=== PATIENT | female | born 1940 | race Caucasian/White ===

== ENCOUNTER 2017-01-07 03:35 | Observation (INO) | payer MEDICARE ==
[~2017-01-07] VITALS: Ht 160 cm; Wt 87.5 kg
--- NOTE | 2017-01-07 03:36 | ED.REPORT ---
HPI-Chest Pain 40 and Over Date of Service Jan 07, 2017 ED Provider: Carlos Cordero MD Patient is a 76 year old female with a history of hypertension and coronary artery disease with prior NSTEMI and cardiac stenting who presents to the ED via EMS after she awoke from sleep with left-sided chest and back pain just prior to arrival. Her pain radiated up to her left shoulder. The patient states that her symptoms are similar to what she experienced during her prior heart attack. EMS EKG enroute showed a left bundle branch block, which she is not aware of having previously. Patient was given 3x nitro and 4x 81mg aspirin by EMS, with improvement of her pain on arrival. Patient reports having acid reflux and indigestion but denies nausea or vomiting. Patient admits to associated shortness of breath but denies increased swelling in her legs. The patient states that she has felt unwell for the past few days. She noticed that her blood pressure has been more elevated than usual, as high as the 190s systolic. The patient received her NSTEMI aftercare at this facility but her initial treatment was at facility in [place], [place]. Patient had a pharmacological stress test March 2016 which revealed a small fixed perfusion defect consistent with prior myocardial infarction (overall low risk study). Her echocardiogram in March 2016 did not show any wall motion abnormalities, with an EF of 60-65%. Nursing Notes Stated Complaint: BACK AND LEFT SHOULDER PAIN Nursing Notes Reviewed: Yes Allergies: Coded Allergies: Gfhwydg-Duj-Gsu Reductase Inhibitor (Verified Allergy, Unknown, 01/07/17) General Time Seen by MD: 03:36 Chief Complaint Back pain Hx Obtained From: Patient Arrived By: Ambulance Sudden in Onset?: No Onset Occurred: Just prior to arrival Symptom Duration: Since onset Location: : Chest left Quality: Painful Radiation: : Back: Shoulder left Severity: Current: No pain currently Severity: Maximum: Moderate Recent Healthcare: No recent doctor visit, No recent hospitalization Similar Sx Previous: No Past Medical History Past Medical History Notes: March 2016: Pharmacological stress test revealed a small fixed perfusion defect consistent with prior myocardial infarction (overall low risk study). Echocardiogram in March 2016 did not show any wall motion abnormalities, with an EF of 60-65%. Past Medical History NSTEMI Reports: Coronary artery disease, Hypertension Past Surgical History cardiac stents breast reduction Reports: Hysterectomy Smoking History Unknown if Ever Smoker Social History Other Social History: Good social support, , Local resident Ambulatory Status Independent Review of Systems Respiratory: Reports: Shortness of breath Cardiovascular: Denies: Edema GI: Reports: Abdominal pain (indigestion), Denies: Nausea, Vomiting Musculoskeletal: Reports: Back pain, Extremity pain, Denies: Extremity swelling Complete sys rev & neg: except as marked. Physical Exam Initial Vital Signs Vital Signs (First) Date Time Temp Pulse Resp B/P Pulse Ox O2 Delivery O2 Flow Rate FiO2 01/07/17 03:42 37.3 90 15 148/75 100 Room Air Initial VS: Reviewed Head / Eyes: Atraumatic, Normocephalic, PERRL ENT: Conjunctiva normal, No scleral icterus Neck: Supple, Full range of motion Skin: Warm, Dry, No cyanosis Neurologic: Alert, Oriented, Nonfocal Psychiatric: Mood/affect normal, Behavior normal, Normal thought content General/Constitutional: Awake, Alert, No acute distress Respiratory / Chest: Breath sounds NL, Breath sounds = bilat, No respiratory distress, No rales, No rhonchi, No wheezing Cardiovascular: Heart rate NL, Regular rhythm, Heart sounds NL, No gallop, No murmurs, No rubs Abdomen: Soft, Non-tender, No guarding, No rebound Lower Extremity / Pelvis / MS: No swelling, No edema Interpretation & Diagnostics Lab Results Interpretation Result Diagram: 01/07/17 0330 01/07/17 0330 Test 01/07/17 03:30 White Blood Count 7.8th/mm3 (3.8-10.1) Red Blood Count 4.50mil/mm3 (3.90-5.20) Hemoglobin 13.3g/dL (12.0-15.6) Hematocrit 38.6% (35.0-46.0) Mean Corpuscular Volume 85.8fL (81-100) Mean Corpuscular Hemoglobin 29.6pg (27.0-35.0) Mean Corpuscular Hemoglobin Concent 34.5% (32.0-37.0) Red Cell Distribution Width 13.4% (12.3-15.4) Platelet Count 321bil/L (150-400) Neutrophils (%) (Auto) 44.4% (40-74) Lymphocytes (%) (Auto) 37.6% (14-46) Monocytes (%) (Auto) 12.8% (4-12) Eosinophils (%) (Auto) 4.2% (0-5) Basophils (%) (Auto) 0.5% (0-3) Prothrombin Time 9.9sec (8.1-12.5) Prothromb Time International Ratio 0.93ratio Activated Partial Thromboplast Time 26.8sec (22.8-33.0) Sodium Level 139mEq/L (134-144) Potassium Level 3.6mEq/L (3.5-5.2) Chloride Level 99mEq/L (97-108) Carbon Dioxide Level 22mmol/L (18-29) Blood Urea Nitrogen 14mg/dL (8-27) Creatinine 0.70mg/dL (0.57-1.00) Estimat Glomerular Filtration Rate 117mL/min (>59) Glucose Level 161mg/dL (60-99) Calcium Level 9.9mg/dL (8.5-10.1) Magnesium Level 2.2mg/dL (1.6-2.6) Total Bilirubin 0.4mg/dL (0.0-1.2) Aspartate Amino Transf (AST/SGOT) 19U/L (0-50) Alanine Aminotransferase (ALT/SGPT) 20U/L (0-32) Alkaline Phosphatase 79U/L (25-165) Troponin T 0.010ug/L (0.0-0.011) Pro-B-Type Natriuretic Peptide 118.1pg/mL (0-738) Total Protein 7.1g/dL (6.4-8.4) Albumin 4.1g/dL (3.4-5.0) ECG Interpretation ECG Interpretation: Normal Sinus Rhythm, Rate 88 LBBB Time: 03:45 Interpreted by: ED physician X-Ray Chest Interpretation Chest Xray Interpretation: Impression: Right hilum is prominent, ?Mass. Normal heart size. No infiltrate. View: Portable Interpretation / Wet Read by: Wet read ED physician Re-Eval/Medical Decision Med Decision/Clinical Course 76-year-old female with atypical chest pain presents with an identical syndrome to what brought her to attention a year ago, with a non-STEMI documented. She is pain-free at this point, has an unreasonable cardiogram with a left bundle branch block, age uncertain. She is admitted now for completion of rule out protocol and consider mibi testing and an echo. Transported in stable condition. Source of Hx: Old records Time of Eval: 04:27 Patient Status: Condition improved Re-Evaluation/Progress Note: Rechecked the patient to inform her of the results of her EKG, chest x-ray, and labs. Due to her history she will be admitted to the hospital per rule out procedure. Patient understands and agrees with this plan. All questions were addressed. Consultation : Referral / Consult Name: Kacie Dejesus DO Consulted With: Hospitalist Call Returned at: 04:15 Dental Prosthetist: Will see patient, Agrees with eval, Agrees with plan, Accepts admit Note: Spoke with Dr. Dejesus, hospitalist, who agrees to accept admit. Counseled Regarding: Diagnosis, Lab results, Need for admission Discharge & Departure Primary Impression: Chest pain Chest pain type: unspecified Qualified Code: R07.9 - Chest pain, unspecified Additional Impression: Coronary artery disease Coronary Disease-Associated Artery/Lesion type: [place] artery [place] vs. transplanted heart: [place] heart Associated angina: with unstable angina Qualified Code: I25.110 - Atherosclerotic heart disease of [place] coronary artery with unstable angina pectoris Disposition: ADMITTED TO HOSPITAL Discharge Condition All VS Reviewed: Yes Condition: Stable Referrals: Kelvin Tavares DO (PCP) Scribe Attestation Portions of this note were transcribed by Joyce Valdez. I, Dr. Cordero personally performed the history, physical exam and medical decision-making; I reviewed and confirmed the accuracy of the information in the transcribed note. Signed by: Sherine Mcbride, 01/07/2017 0521 copies to: Kelvin Tavares Christopher W MD Jan 07, 2017 03:36 Joyce Valdez Jan 07, 2017 03:42
[2017-01-07 03:42] VITALS: BP 148/75; PULSE 90; RESP 15; O2SAT 100
[2017-01-07 03:46] LABS: BASOPHILS % (AUTO) 0.5 % (0-3); EOSINOPHILS % (AUTO) 4.2 % (0-5); MONOCYTES % (AUTO) 12.8 % (4-12); Mean Corpuscular Hemoglobin 29.6 pg (27.0-35.0); Mean Corpuscular Volume 85.8 fL (81-100); NEUTROPHILS % (AUTO) 44.4 % (40-74); Platelet Count 321 bil/L (150-400)
[2017-01-07 04:08] LABS: INR 0.93 ratio
[2017-01-07 04:10] LABS: TROPONIN T 0.01 ug/L (0.0-0.011)
[2017-01-07 04:21] LABS: Magnesium 2.2 mg/dL (1.6-2.6)
[2017-01-07] MEDS ORDERED: Pantoprazole 4 mg/mL 10 mL Inj IVPUSH ONE (04:30)
[2017-01-07] MEDS ORDERED: Polyethylene Glycol (PEG) 17 Gm Powder PO PRN (05:05)
[2017-01-07] MEDS ORDERED: Alum-Mag Hydrox-Simeth 30 mL Suspension PO PRN (05:05)
[2017-01-07] MEDS ORDERED: Ondansetron 2 mg/mL 2 mL Inj IVPUSH PRN (05:05)
[2017-01-07 05:30] VITALS: BP 117/72; PULSE 70; RESP 19; O2SAT 95
[2017-01-07 05:38] VITALS: PULSE 68
[2017-01-07 05:39] VITALS: BP 126/70; PULSE 68; RESP 16; O2SAT 96
--- NOTE | 2017-01-07 05:52 | PCM.HPMED ---
Subjective Date of Service Jan 07, 2017 Primary Provider: Admitting Physician: Kacie Dejesus DO Primary Care Physician: Shagufta Malagon Attending Physician: Kacie Dejesus DO Admit Status: From the Emergency Department Chief Complaint: Chest pain History of Present Illness: Patient is a 76 year old female with a history of CAD s/p FERCHO placement in October of 2015, prior NSTEMI, hypertension, uncontrolled hyperlipidemia due to statin intolerance, hypothyroidism, and hyperglycemia without prior diagnosis of diabetes mellitus who presented to the ED via EMS with the complaint of substernal chest pain with radiation to her left arm, shoulder and back. Onset of symptoms was around 9pm and the patient's states that she felt as though her blood pressure was high. Upon checking she notes a systolic BP >160. She states that she otherwise was feeling well and went to sleep. Then around 2am her chest pain woke her so she rechecked her blood pressure, which she was states was >190s systolic and she called EMS. In transport she was given three doses of nitroglycerin and four doses of 81mg aspirin by EMS, with near resolution of her symptoms. She states that her symptoms were similar to those she experienced last year during her prior NSTEMI. Associated symptoms include shortness of breath and fatigue. She denies diaphoresis, nausea, vomiting, vision changes, dizziness, palpitations. Of note, her stent was placed in [facility] when she was on her way back to [place] from [facility]. She has been seen locally by Dr. Larose and was last seen in April of 2016. Following the placement of the stent she was started on daily aspirin, prasurgrel as well as Zetia. A stress test with myocardial perfusion imaging in March of 2016 showed a mild fixed lateral perfusion defect and an echocardiogram showed an EF 60-65% with no focal wall motion abnormalities. In the ED she was afebrile with temp of 37.3, BP 148/75, HR 90, RR 15, SpO2 100 % on room air. Labs significant for troponin of 0.010, proBNP of 118.1 and hyperglycemia with a serum glucose of 161. ECG Interpretation: NSR with rate in the 80s, LBBB, no ST changes Chest xray demonstrating a prominent right hilum, otherwise no acute cardiopulmonary process. Review of Systems: A comprehensive review of systems was conducted with the patient and found to be negative except as above in the History of Present Illness. Allergies Coded Allergies: Cdjfaog-Swy-Pgd Reductase Inhibitor (Verified Allergy, Unknown, 01/07/17) Home Medications Medication reconciliation not available at time of admission. Day team to confirm and reconcile. PMH CAD s/p FERCHO placement in Oct 2015 NSTEMI Intolerance to statins Hypothyroidism Hypertension Hyperlipidemia Surgical History Cardiac stent Hysterectomy Breast reduction Orthopedic surgeries Family History Noncontributory Social History Hx Alcohol Use: No Hx Substance Use: No Hx Tobacco Use: No Smoking Status: Never Smoker Living Arrangement: with Family Additional Information Retired [employer], live with and cares for her with vascular dementia in [facility]. Exam Vital Signs Vital Sign - Last Date Time Temp Pulse Resp B/P Pulse Ox O2 Delivery O2 Flow Rate FiO2 01/07/17 05:39 36.4 68 16 126/70 96 Room Air Exam General: well developed, well nourished, female sitting up in bed, in no acute distress, appropriately interactive HEENT: Normocephalic, atraumatic. PERRLA, no scleral icterus. Oropharynx free of erythema and cobble stoning with moist mucosa. Neck: No jugular venous distension. No bruits. No lymphadenopathy or thyromegaly. Cardiovascular: Regular rate and rhythm with no murmurs, rubs, or gallops appreciated Pulmonary: Clear to auscultation bilaterally with no crackles, wheezes, or rhonchi. Normal respiratory effort with no use of accessory muscles. Abdomen: Bowel tones present. Soft, nontender, nondistended. No hepatosplenomegaly or masses appreciated. Extremities: No clubbing, cyanosis, or edema Skin: Normal temperature, turgor, and texture; no rash, ulcers, or subcutaneous nodules appreciated. Neurological: Cranial nerves grossly intact. Normal muscle strength, tone, and bulk. Psychiatric: Normal mood and affect. Alert and oriented to person, place, and time. Lab and Diagnostics Labs Laboratory Tests Test 01/07/17 03:30 White Blood Count 7.8th/mm3 (3.8-10.1) Red Blood Count 4.50mil/mm3 (3.90-5.20) Hemoglobin 13.3g/dL (12.0-15.6) Hematocrit 38.6% (35.0-46.0) Mean Corpuscular Volume 85.8fL (81-100) Mean Corpuscular Hemoglobin 29.6pg (27.0-35.0) Mean Corpuscular Hemoglobin Concent 34.5% (32.0-37.0) Red Cell Distribution Width 13.4% (12.3-15.4) Platelet Count 321bil/L (150-400) Neutrophils (%) (Auto) 44.4% (40-74) Lymphocytes (%) (Auto) 37.6% (14-46) Monocytes (%) (Auto) 12.8% (4-12) Eosinophils (%) (Auto) 4.2% (0-5) Basophils (%) (Auto) 0.5% (0-3) Prothrombin Time 9.9sec (8.1-12.5) Prothromb Time International Ratio 0.93ratio Activated Partial Thromboplast Time 26.8sec (22.8-33.0) Sodium Level 139mEq/L (134-144) Potassium Level 3.6mEq/L (3.5-5.2) Chloride Level 99mEq/L (97-108) Carbon Dioxide Level 22mmol/L (18-29) Blood Urea Nitrogen 14mg/dL (8-27) Creatinine 0.70mg/dL (0.57-1.00) Estimat Glomerular Filtration Rate 117mL/min (>59) Glucose Level 161mg/dL (60-99) Calcium Level 9.9mg/dL (8.5-10.1) Magnesium Level 2.2mg/dL (1.6-2.6) Total Bilirubin 0.4mg/dL (0.0-1.2) Aspartate Amino Transf (AST/SGOT) 19U/L (0-50) Alanine Aminotransferase (ALT/SGPT) 20U/L (0-32) Alkaline Phosphatase 79U/L (25-165) Troponin T 0.010ug/L (0.0-0.011) Pro-B-Type Natriuretic Peptide 118.1pg/mL (0-738) Total Protein 7.1g/dL (6.4-8.4) Albumin 4.1g/dL (3.4-5.0) Result Diagram: 01/07/17 03301/07/17 033 X-Rays, CTs and MRIs Official read pending at time of admission: Chest xray demonstrating a prominent right hilum, otherwise no acute cardiopulmonary process. 12-lead ECG ECG Interpretation: NSR with rate in the 80s, LBBB, no ST changes Assessment & Plan 76y/o female with a history of CAD s/p FERCHO placement in October of 2015, prior NSTEMI, hypertension, uncontrolled hyperlipidemia due to statin intolerance, hypothyroidism, and hyperglycemia without prior diagnosis of diabetes mellitus who presented to the ED via EMS with the complaint of acute onset of substernal chest pain with radiation to her left arm, shoulder and back. Admitted to rule out cardiac cause for chest pain. 1. Chest pain, acute, present on admission. Improved -Pt reported symptoms similar to prior NSTEMI. CP improved with SL nitro. -Initial troponin is negative, proBNP elevated at 118.1 -EKG with LBBB and no ST changes -CXR with prominent right hilum but otherwise unremarkable and official read pending. -Admitted to medical floor with telemetry -Cardiac stress test ordered, consider consult to cardiology -Pt intolerant to statins -Continue oral aspirin, hold beta robb for stress test -SL nitro prn and IV morphine prn as long as BP tolerates -Trend troponin, hgbA1c and lipid panel pending -NPO for possible procedures -Day team to reconcile medications 2. Hyperglycemia, present on admission. Active. -Pt denies prior diagnosis of diabetes, serum glucose on admission 180 -HbA1c 3. Hx of CAD with prior NSTEMI and FERCHO placement in Oct 2015 -Pt intolerant to statins -Continue daily aspirin, pt thinks she takes lisinopril. Med rec not available at time of admission. -Consider starting beta robb pending cardiac stress test 4. Chronic hypertension, present on admission. Active. -Continue home meds, pending med rec 5. Chronic hyperlipidemia, present on admission. Active. -Continue home meds, pending med rec, pt intolerant to statins 6. Chronic hypothyroidism, present on admission. Presumed stable. -Continue home meds, pending med rec PRN: Acetaminophen-fever/headache/mild/moderate pain Antiemetics, as needed Bowel regimen, as needed. Disposition: Patient admitted under observation status with expected length of stay < 2 midnights for severity of present symptoms, complexities of treatment plan and risk for adverse event. Pain Evaluation: Adequate Pain Control VTE Prophylaxis Indicated: Meets Criteria for Anticoag Therapy VTE Prophylaxis: Sub-Q Heparin (Unfractionated) VTE Mechanical Devices: Intermittant Pneumatic CD Resuscitation Status: CPR: Attempt Resuscitation Attending Statement The patient was seen and examined together with house staff on 01/07/2017 and I agree with the history, exam and plan as outlined in the note above. Citlalli Mckeon Jan 07, 2017 05:52 Kacie Dejesus Jan 07, 2017 06:50 Primary Impression: Chest pain Chest pain type: unspecified Qualified Code: R07.9 - Chest pain, unspecified Disposition: ADMITTED TO HOSPITAL Discharge Condition All VS Reviewed: Yes Condition: Stable Referrals: Kelvin Tavares DO (PCP) Scribe Attestation Portions of this note were transcribed by Joyce Valdez. I, Dr. Cordero personally performed the history, physical exam and medical decision-making; I reviewed and confirmed the accuracy of the information in the transcribed note. Signed by: Sherine Mcbride, 01/07/2017 0521 copies to: Kelvin Tavares Christopher W MD Jan 07, 2017 03:36 Joyce Valdez Jan 07, 2017 03:42 Report status: Draft Transcribed by: RENETTA 01/07/17 0336 REPORT#: [id number] Allergies Coded Allergies: Bbphfmx-Yaz-Nwf Reductase Inhibitor (Verified Allergy, Unknown, 01/07/17) PMH Social History Hx Alcohol Use: No Hx Substance Use: No Smoking Status: Unknown if Ever Smoker Exam Vital Signs Vital Sign - Last Date Time Temp Pulse Resp B/P Pulse Ox O2 Delivery O2 Flow Rate FiO2 01/07/17 05:39 36.4 68 16 126/70 96 Room Air Exam General: No acute distress, well-developed, well-nourished, appropriately interactive HEENT: Normocephalic, atraumatic. External ears without defect. Pupils equal, round, and reactive to light and accommodation. Anicteric sclerae, moist conjunctivae, and no lid lag. Oropharynx free of erythema and cobble stoning with moist mucosa. Neck: Supple with full range of motion. No jugular venous distension. No bruits. No lymphadenopathy or thyromegaly. Cardiovascular: Regular rate and rhythm with no murmurs, rubs, or gallops appreciated Pulmonary: Clear to auscultation bilaterally with no crackles, wheezes, or rhonchi. Normal respiratory effort with no use of accessory muscles. Abdomen: Bowel tones present. Soft, nontender, nondistended. No hepatosplenomegaly or masses appreciated. Extremities: No clubbing, cyanosis, edema, or lymphadenopathy appreciated. Skin: Normal temperature, turgor, and texture; no rash, ulcers, or subcutaneous nodules appreciated. Neurological: Cranial nerves grossly intact. Normal muscle strength, tone, and bulk. Reflexes, coordination, and sensory function within normal limits. No known gait impairment. Psychiatric: Normal mood and affect. Alert and oriented to person, place, and time. Lab and Diagnostics Labs Laboratory Tests Test 01/07/17 03:30 White Blood Count 7.8th/mm3 (3.8-10.1) Red Blood Count 4.50mil/mm3 (3.90-5.20) Hemoglobin 13.3g/dL (12.0-15.6) Hematocrit 38.6% (35.0-46.0) Mean Corpuscular Volume 85.8fL (81-100) Mean Corpuscular Hemoglobin 29.6pg (27.0-35.0) Mean Corpuscular Hemoglobin Concent 34.5% (32.0-37.0) Red Cell Distribution Width 13.4% (12.3-15.4) Platelet Count 321bil/L (150-400) Neutrophils (%) (Auto) 44.4% (40-74) Lymphocytes (%) (Auto) 37.6% (14-46) Monocytes (%) (Auto) 12.8% (4-12) Eosinophils (%) (Auto) 4.2% (0-5) Basophils (%) (Auto) 0.5% (0-3) Prothrombin Time 9.9sec (8.1-12.5) Prothromb Time International Ratio 0.93ratio Activated Partial Thromboplast Time 26.8sec (22.8-33.0) Sodium Level 139mEq/L (134-144) Potassium Level 3.6mEq/L (3.5-5.2) Chloride Level 99mEq/L (97-108) Carbon Dioxide Level 22mmol/L (18-29) Blood Urea Nitrogen 14mg/dL (8-27) Creatinine 0.70mg/dL (0.57-1.00) Estimat Glomerular Filtration Rate 117mL/min (>59) Glucose Level 161mg/dL (60-99) Calcium Level 9.9mg/dL (8.5-10.1) Magnesium Level 2.2mg/dL (1.6-2.6) Total Bilirubin 0.4mg/dL (0.0-1.2) Aspartate Amino Transf (AST/SGOT) 19U/L (0-50) Alanine Aminotransferase (ALT/SGPT) 20U/L (0-32) Alkaline Phosphatase 79U/L (25-165) Troponin T 0.010ug/L (0.0-0.011) Pro-B-Type Natriuretic Peptide 118.1pg/mL (0-738) Total Protein 7.1g/dL (6.4-8.4) Albumin 4.1g/dL (3.4-5.0) Result Diagram: 01/07/1732901/07/17329 Assessment & Plan PRN: Acetaminophen-fever/headache/mild/moderate pain Antiemetics, as needed Bowel regimen, as needed. : Polyethylene glycol, senokot, maalox (al hydroxide/mg hydroxide) Disposition: Patient admitted under inpatient status with expected length of stay > 2 midnights for severity of present symptoms, complexities of treatment plan and risk for adverse event. Citlalli Mckeon DO Jan 07, 2017 05:52 stay > 2 midnights for severity of present symptoms, complexities of treatment plan and risk for adverse event. Citlalli Mckeon DO Jan 07, 2017 05:52
[2017-01-07 08:07] LABS: APPEARANCE,URINE HAZY (CLEAR,HAZY); COLOR,URINE YELLOW (YELLOW); OCCULT BLOOD,URINE NEGATIVE (NEGATIVE); PH,URINE 5.5 (5.0-8.0); UROBILINOGEN,URINE NORMAL (NORMAL)
[2017-01-07] MEDS: Heparin 5,000 Unit/mL Inj SUBQ SCH ×2 (08:24→16:30)
--- NOTE | 2017-01-07 08:28 | DRSVH ---
PROCEDURE: X-RAY CHEST ONE VIEW, PORTABLE ([id number]) INDICATIONS: CHEST PAIN TECHNIQUE: One view of the chest was acquired. COMPARISON: 07/26/2016 FINDINGS: Surgical changes and devices: 2 screws in the right humeral head.. Lungs and pleura: No pleural effusions or pneumothorax. Lungs are clear. Mediastinum: Mediastinal contours appear normal. Heart size is normal. Bones and chest wall: No suspicious bony lesions. Overlying soft tissues appear unremarkable. IMPRESSION: No acute cardiopulmonary abnormality Dictated by: Karlos Zuluaga M.D. on 01/07/2017 at 8:25 Approved by: Karlos Zuluaga M.D. on 01/07/2017 at 8:26
[2017-01-07 10:42] VITALS: PULSE 65
[2017-01-07] MEDS ORDERED: LEVO100T6 PO (11:04)
[2017-01-07] MEDS ORDERED: CLOP75TA28 PO (11:04)
[2017-01-07] MEDS ORDERED: KRIL1CAP19 PO (11:04)
[2017-01-07] MEDS ORDERED: METO-272 PO (11:04)
[2017-01-07] MEDS ORDERED: UBID400C6 PO (11:04)
[2017-01-07] MEDS ORDERED: LISI-567 PO (11:04)
[2017-01-07] MEDS ORDERED: EZET10TA PO (11:04)
[2017-01-07] MEDS ORDERED: HYDR25TA4 PO (11:04)
[2017-01-07] MEDS ORDERED: CHOL200025 PO (11:05)
[2017-01-07 13:14] VITALS: BP 121/71; PULSE 72; RESP 18; O2SAT 96
--- NOTE | 2017-01-07 13:43 | DRSVH ---
PROCEDURE: ONE DAY PHARMACOLOGICAL STRESS TEST. Rest and pharmacological stress myocardial perfusio n SPECT with gated imaging and ejection fraction RADIOPHARMACEUTICAL: 11.2 mCi Tc-99m tetrofosmin IV at rest and 33.5 mCi Tc-99m tetrofosmin IV at pe ak effect of pharmacological stress. A [id number] was performed. INDICATIONS: CHEST PAIN. NON STEMI. TECHNIQUE: Radiopharmaceutical was injected at peak stress test, and also at rest. SPECT images wer e obtained. SPECT myocardial perfusion images were displayed in short axis, horizontal long axis, an d vertical long axis views. Gated images were reviewed using Balzo software. COMPARISON: None. CARDIAC STRESS: A pharmacologic stress test was performed under the supervision of attending staff, using an infusion of Lexiscan as per protocol. Hemodynamic Data: There is normal blood pressure and heart rate response to pharmacologic stress. Symptoms: The patient developed lightheadedness, abdominal cramps, and dyspnea during Lexiscan infus ion. Aminophylline: 100 mg IV aminophylline was given. EKG: Baseline rhythm was sinus with a left bundle branch block. Stress EKG did not reveal any obvio us ischemic changes. There was no significant arrhythmia seen. FINDINGS: Raw Data: There was breast shadow seen. Left Ventricular Function: Resting LV ejection fraction was 67% and stress LV ejection fraction was 90%. I do not see any obvious wall motion abnormalities. Resting end diastolic volume was 74 mL. On my visual inspection, there was no transient ischemic dilatation. Myocardial Perfusion: Stress supine images reveal mildly decreased perfusion of the basal inferosept um, which resolved during prone images. On prone images, I do not see any obvious perfusion defects. There appears to be normal myocardial perfusion. IMPRESSION: I will call this study a normal myocardial perfusion study with evidence of tissue atten uation artifact, which got resolved during prone images. Left ventricular function is preserved. Ov erall, this is a low-risk myocardial perfusion study. Dictated by: Dre Osman M.D. on 01/07/2017 at 12:01 Transcribed by: QASIM on 01/07/2017 at 16:42 Approved by: Dre Osman M.D. on 01/09/2017 at 11:22
--- NOTE | 2017-01-07 16:53 | PCM.DIMED ---
Discharge Instructions Date of Service Jan 07, 2017 Dates of Hospitalization Jan 07, 2017 at 04:36 Discharge Diagnosis Discharge Diagnosis Chest Pain etiology unclear Known CAD Hypertension Hypothyroidism Test Results Patient Name: KAMILAH OLIVERA MR#: [id number] [place] [facility] [place] Phys: Citlalli Mckeon DO Date of Service: 01/07/17 0642 Caution: Report not yet finalized and possibly incomplete! PROCEDURE: ONE DAY PHARMACOLOGICAL STRESS TEST. Rest and pharmacological stress myocardial perfusion SPECT with gated imaging and ejection fraction RADIOPHARMACEUTICAL: 11.2 mCi Tc-99m tetrofosmin IV at rest and 33.5 mCi Tc- 99m tetrofosmin IV at peak effect of pharmacological stress. A one-day- protocol was performed. INDICATIONS: CHEST PAIN. NON STEMI. TECHNIQUE: Radiopharmaceutical was injected at peak stress test, and also at rest. SPECT images were obtained. SPECT myocardial perfusion images were displayed in short axis, horizontal long axis, and vertical long axis views. Gated images were reviewed using [id number] software. COMPARISON: None. CARDIAC STRESS: A pharmacologic stress test was performed under the supervision of attending staff, using an infusion of Lexiscan as per protocol. Hemodynamic Data: There is normal blood pressure and heart rate response to pharmacologic stress. Symptoms: The patient developed lightheadedness, abdominal cramps, and dyspnea during Lexiscan infusion. Aminophylline: 100 mg IV aminophylline was given. EKG: Baseline rhythm was sinus with a left bundle branch block. Stress EKG did not reveal any obvious ischemic changes. There was no significant arrhythmia seen. FINDINGS: Raw Data: There was breast shadow seen. Left Ventricular Function: Resting LV ejection fraction was 67% and stress LV ejection fraction was 90%. I do not see any obvious wall motion abnormalities. Resting end diastolic volume was 74 mL. On my visual inspection, there was no transient ischemic dilatation. Myocardial Perfusion: Stress supine images reveal mildly decreased perfusion of the basal inferoseptum, which resolved during prone images. On prone images , I do not see any obvious perfusion defects. There appears to be normal myocardial perfusion. IMPRESSION: I will call this study a normal myocardial perfusion study with evidence of tissue attenuation artifact, which resolved during prone images. Left ventricular function is preserved. Overall, this is a low-risk myocardial perfusion study. Dictated by: Dre Osman M.D. on 01/07/2017 at 12:01 Transcribed by: QASIM on 01/07/2017 at 16:42 Diet Heart Healthy Activity Limited until seen by PCP Call your provider Chest pain Ishan Mast MD Jan 07, 2017 16:53
[2017-01-07] MEDS ORDERED: NITR0.6T5 SL (16:55)
--- NOTE | 2017-01-07 17:58 | DIS ---
[address] [address] DISCHARGE SUMMARY PATIENT: KAMILAH OLIVERA : 1940 MR#: [id number] ADMIT: 01/07/2017 JOB ID: [id number] DIS: 01/07/2017 PRIMARY CARE PROVIDER: Shagufta Malagon PA-C, [facility]. Telecasting Engineer, Dr. Larose, Cardiology, [facility]. FINAL DIAGNOSES: 1. Chest pain, etiology unclear, with low-risk myocardial perfusion scan. 2. Known coronary artery disease. 3. Hypertension. 4. Hypothyroidism. CONSULTANTS: Case reviewed with Dr. Miranda by phone only. BRIEF HISTORY: A 76-year-old, white female, with a drug-eluting stent placed October 2015 for an NSTEMI in [place]. She has moved here. She is off her and saw Dr. Larose apparently. She is following with Dr. Larose now for her cardiac disease. In April 2016, she had a repeat myocardial perfusion scan which was negative. The patient has had no further chest discomfort since her stent in October 2015, but then now has been having similar symptoms. As before, she has had a week of vague discomfort to the left side of her neck. The patient is vague and it is really hard to pin her down, but it does seem like this discomfort can last for a few hours every evening. That is how her other heart attack presented. She went to the ED and had a positive troponin, was admitted and had her stent placed. So, she had this discomfort in the left side of her shoulder for about a week, mostly in the evenings. Then, at 2:00 in the morning this morning, she woke up. At that time, she noted her blood pressure was in the 190s and she was having that same discomfort, but it was more in her shoulder and in her chest and left side of her neck a little bit. She called paramedics. They gave her three nitros, oxygen and it eventually went away in 10 minutes. She presents to the ED was admitted for rule out [place]. The patient's cardiac markers have been negative. Troponins x2 are normal. Her cholesterol was 173, LDL 91.6. Her CBC was unrevealing as was her pro time. UA showed a few white cells, but there have been no symptoms. EKG showed a left bundle-branch block, probable left atrial enlargement. The patient underwent a one-day pharmacological stress test. This was read by Dr. Osman as low risk. He read this is a normal myocardial perfusion study with tissue attenuation artifact which resolved on prone imaging. The patient's cardiac symptoms are a little bit atypical, but very similar to her previous symptoms. Therefore, I tried reaching Dr. Larose in her office, but she is not in this week. I talked to Dr. Miranda, reviewed this with him. He also looked at the myocardial perfusion scan and feels the patient is okay to go home. I am going to discharge the patient home on her same regular medications. I am also going to add some sublingual nitro which she can use for discomfort. If she gets a little chest discomfort and it goes right away with the nitro, she can call her doctor, does not need to boone to the hospital. However if she gets severe pain in her chest and it is not going away with the nitro, she is to come into the ED immediately. Otherwise, I would like her to see Dr. Larose as soon as possible. They can call tomorrow. Dr. Larose is back on Friday and Dr. Miranda would like her to be seen real soon. I would also like her to see her primary care provider in the next several days. Additional issues include a nonfasting blood sugar of 161, hemoglobin A1c is still pending. That will need to be followed up by her primary care provider. The patient also had a slightly abnormal UA but no symptoms to necessitate treatment. DISCHARGE MEDICATIONS: 1. Plavix 75 daily. 2. Zetia 10 daily. 3. Lisinopril 20 daily. 4. Metoprolol succinate 50 b.i.d. 5. Hydrochlorothiazide 25 daily. 6. Levothyroxine 100 daily. 7. New prescription for sublingual nitro p.r.n. chest discomfort. Even though the patient's blood pressure was high at home, I have not increased her antihypertensives as her blood pressures were normal to slightly low here in the hospital and will defer to outpatient management. Total discharge time 45 minutes today.
== END 2017-01-07 17:29 | disposition home or self-care (01) ==
LOC: SED 03:35 → MPC 04:36
PROVIDERS: ADMIT Internal Medicine; ATTEND Internal Medicine
DX: R07.9 Chest pain, unspecified (principal); R73.9 Hyperglycemia, unspecified; I25.10 Atherosclerotic heart disease of native coronary artery without angina pectoris; I10 Essential (primary) hypertension; E78.5 Hyperlipidemia, unspecified; E03.9 Hypothyroidism, unspecified; I25.2 Old myocardial infarction; Z95.5 Presence of coronary angioplasty implant and graft; Z88.8 Allergy status to other drugs, medicaments and biological substances; Z90.710 Acquired absence of both cervix and uterus; Z79.02 Long term (current) use of antithrombotics/antiplatelets
CPT/HCPCS: 36415; 71010; 78452; 80053; 80061; 81000; 83036; 83735; 83880; 84484; 85025; 85610; 85730; 87086; 87088; 93005; 93017; 96374; 99285; A9502; G0378; J0280; J1644; J2785